=== PATIENT | female | born 1980 | race Two or more races ===

== ENCOUNTER 2016-11-02 14:42 | Emergency (ER) | payer MEDICAID ==
[2016-11-02 15:06] VITALS: TEMP 98.4
--- NOTE | 2016-11-02 15:33 | EDPHY ---
H & P Stated Complaint: Migrane since 10/31 Source: Patient Exam Limitations: No limitations - Personal History Current Tetanus/Diphtheria Vaccine: Yes Current Tetanus Diphtheria and Acellular Pertussis (TDAP): Yes - Medical/Surgical History Hx Asthma: No Hx Chronic Respiratory Disease: No Hx Diabetes: No Hx Cardiac Disease: No Hx Renal Disease: No Hx Cirrhosis: No Hx Alcoholism: No Hx HIV/AIDS: No Hx Splenectomy or Spleen Trauma: No - Social History Smoking Status: Never smoked Time Seen by Provider: 11/02/16 15:30 HPI/ROS: CHIEF COMPLAINT: Migraine headache. HISTORY OF PRESENT ILLNESS: The patient is a 36-year-old female with a history of migraines who presents with a migraine headache since Wednesday (2 days). Usually her migraines go away in 1-2 days especially if she is able to take Imitrex close to onset. Today's migraine, however, has not subsided. She admits associated photophobia and nausea which is similar to her previous migraines. She does report developing neck pain at the beginning of this headache which is somewhat unusual for her. She has been taking Aleve instead of taking her Imitrex because, as mentioned, her headache started with right- sided neck pain. She has had neck pain with her migraines especially over the last year. No recent sickness, double vision, blurred vision, numbness, weakness, paresthesias. No fever, chills, chest pain, shortness of breath, palpitations, vomiting, diarrhea, urinary complaints, lightheadedness. REVIEW OF SYSTEMS: Aside from elements discussed in the HPI, a comprehensive 10-point review of systems was reviewed and is negative. PAST MEDICAL HISTORY: Migraines. 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 VITAL SIGNS Reviewed by me. GENERAL: Well-developed, well-nourished, resting in a dark room. HEENT: Atraumatic. Eyes: PERRL, EOMI, no nystagmus. No icterus. No injection. Mouth: moist mucous membranes. No erythema or lesions. Neck: No meningitis. Some tenderness to palpation over the right lateral neck musculature. No midline tenderness. No adenopathy. Negative Kernig's. Negative Brudzinski's. No meningismus. LUNGS: Clear to auscultation bilaterally, no wheezes, rhonchi or rales. CARDIAC: Regular rate and rhythm, no rubs, murmurs or gallops. ABDOMEN: Soft, nontender, nondistended, bowel sounds normal. BACK: No CVA tenderness. EXTREMITIES: No trauma. No edema. Range of motion is normal throughout. NEURO: Alert and oriented, cranial nerves II through XII are intact. Motor strength 5 over 5 in all major muscle groups. Sensation intact to light touch. Normal gait. SKIN: Warm and dry, no rash. PSYCHIATRIC: Normal mentation, no agitation. Portions of this note were transcribed by a medical dosimetrist. I personally performed a history, physical exam, medical decision making, and confirmed accuracy of information the transcribed note. (Sailaja Castillo) Constitutional: Initial Vital Signs Temperature (C) 36.9 C 11/02/16 15:04 Heart Rate 72 11/02/16 15:04 Respiratory Rate 16 11/02/16 15:04 Blood Pressure 105/60 11/02/16 15:04 O2 Sat (%) 97 11/02/16 15:04 O2 Delivery Mode Room Air O2 (L/minute) 2 Allergies/Adverse Reactions: No Known Allergies Allergy (Unverified 11/02/16 15:03) Home Medications: Medication Instructions Recorded Hydrocodone/APAP 5/325 [[place] 1 tab PO Q6H PRN #10 tab 11/02/16 5/325 (RX)] Medical Decision Making - Diagnostics Imaging: Study: CT of the head was obtained. The results of the study are: Suspect petechial hemorrhage rather than calcification in the subcortical posterior right frontal lobe. No surrounding edema or mass effect. The study was read by the radiologist, Dr. Ziegler. I viewed the images myself on the PACS system. (Jennifer Foss) ED Course/Re-evaluation: An IV was established and labs ordered. 10mg IV Decadron, 25mg IV Benadryl, 10mg IV Reglan, and 30mg IV Toradol administered for migraine. 445: Patient is feeling better. Headache mostly resolved but not completely gone. Dilaudid was given. Patient will undergo CT scan of the head as she has been experiencing more frequent headaches comma headaches associated with more neck discomfort, and has not had imaging studies previously. (Sailaja Castillo) The patient was signed out to me by Dr. Castillo at shift change with head CT pending. Imaging results were phoned to me, she has suspected right sided subcortical hemorrhage. I examined the patient and discussed findings. She has a history of migraines that occur every 3 months. She is prescribed Imitrex. She tells me her headaches have been occurring more frequently than usual and are more severe than her typical migraines. Plan to order brain MRI. MRI of the brain with without contrast was performed. The results were relayed to me by Dr. Clark Yeboah. 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 There is evidence of recent bleeding and also has hemosiderin suggesting more remote bleeding. I have spoke with Dr. and rib escobar of Neurosurgery. He will see the patient in clinic. I reviewed these findings with the patient and given her information about cavernous malformations. She is currently headache free. She has never had seizure activity. I feel that she is safe to return home. (Jennifer Foss) Differential Diagnosis: After history was obtained, and the physical exam performed, a differential for headache was considered including, but not limited to, subarachnoid hemorrhage, migraine headache, tension headache and infectious causes such as meningitis, sinusitis, encephalitis. (Sailaja Castillo) - Data Points Medications Given: Discontinued Medications Dexamethasone (Decadron Injection) 10 mg IVP EDNOW ONE Stop: 11/02/16 15:49 Last Admin: 11/02/16 16:01 Dose: 10 mg Diphenhydramine HCl (Benadryl Injection) 25 mg IVP EDNOW ONE Stop: 11/02/16 15:49 Last Admin: 11/02/16 16:02 Dose: 25 mg Hydromorphone HCl (Dilaudid) 1 mg IVP EDNOW ONE Stop: 11/02/16 16:46 Last Admin: 11/02/16 16:56 Dose: 1 mg Ketorolac Tromethamine (Toradol) 30 mg IVP EDNOW ONE Stop: 11/02/16 15:49 Last Admin: 11/02/16 16:02 Dose: 30 mg Metoclopramide HCl (Reglan Injection) 10 mg IVP EDNOW ONE Stop: 11/02/16 15:49 Last Admin: 11/02/16 16:02 Dose: 10 mg Departure - Departure Disposition: Home, Routine, Self-Care Clinical Impression: Cavernous malformation Migraine Qualifiers: Migraine type: unspecified Status migrainosus presence: without status migrainosus Intractability: not intractable Qualified Code(s): G43.909 - Migraine, unspecified, not intractable, without status migrainosus Condition: Good Instructions: Migraine Headache (ED) Additional Instructions: Call Dr. Alas, neurology, tomorrow to set up a follow up appointment. Okay to take hydrocodone if needed for any residual severe headache pain. Return to the emergency department for any serious worsening of condition. You have what is called a cavernous malformation in your right brain. These are abnormal blood vessels. Usually they do not cause major problems. They are followed by neurosurgeons and I am referring you to the neurosurgery clinic , Dr. Dhaliwal. If you have severe headache, new numbness, new weakness, confusion , or a seizure you should call 911 and return to the emergency department. Cavernous malformations are clusters of abnormal, tiny blood vessels, and larger , stretched-out, thin-walled blood vessels filled with blood in the brain. These blood vessel malformations can also occur in the spinal cord, the covering of the brain (dura), or the nerves of the skull. Cavernous malformations range in size from less than one-quarter inch to 3-4 inches. Cavernous malformations are also referred to as cavernomas, cavernous angiomas, cavernous hemangiomas or intracranial vascular malformations. The term angioma implies a propensity for growth that is associated primarily with the familial form of the illness. Diagnosis Cavernous malformations are part of a group of lesions known as "angiographically occult vascular malformations." This means that they are not visible on an angiogram. Angiograms cannot visualize cavernous malformations because blood flows through these types of lesions slowly. The relatively milder symptoms from the lesion, even when ruptured, are presumed to be related to this state of relatively low blood flow. Magnetic resonance imaging (MRI), with and without contrast and with gradient echo sequences remains the best means of diagnosing cavernous malformations. MRI scans may need to be repeated to analyze a change in the size of a cavernous malformation, recent bleeding, or the appearance of new lesions. Treatment Asymptomatic Lesions In general, lesions that are and incidentally discovered should be followed with MRI scans annually for two years, then every five years thereafter. An MRI should be performed sooner if there is any clinical evidence of hemorrhage or new symptoms appear. Some patients may be prescribed anti-convulsant medications. This is an example of a subtype of AVM that may be monitored radiographically, specifically because the consequences of hemorrhage from these lesions are much less dire than those from classic AVMs or aneurysms. Symptomatic lesions Surgery should be considered for seizure control if: 1. Seizures cannot be controlled through medication management; 2. The cavernous malformation is in a low risk, easily accessible area of the brain; and 3. It has been determined that the lesion is causing the seizures. If seizures are controlled through medication management, there may not be any compelling reason to perform surgery. In general, although seizures may indeed be cured by successful microsurgical removal, the primary goal of surgery is to prevent future bleeding and problems such as seizures that may be associated with it. Seizure control by itself is not justification for performing microsurgery on a cavernous malformation. Surgery may be indicated in patients who have experienced one neurologically symptomatic hemorrhage from a lesion in a low risk, easily accessible area. For lesions in eloquent areas of the brain, surgical removal should be contemplated in the context of surgical risk to nearby brain tissue, balancing this risk against the risk of bleeding to that same tissue in the event of a second hemorrhage. Surgical removal should be considered in patients with progressive neurological deficits, but such neurological deficits can worsen after surgery. Although brain or spine surgery may carry substantial risk, so may hemorrhage into nervous tissue. The risk of surgery must be balanced against the risk of no surgery, on an individualized, [id number] basis. Outcome Most patients can leave the hospital a few days following surgery and resume normal life within a few weeks of surgery. Many patients can be cured without neurological deficit. Many patients with neurological deficits are able to regain their neurological baseline (condition at time of surgery) with therapy, and may even show further improvements. Patients with neurological deficits may require a prolonged period of rehabilitation. The rebleeding rate of cavernous malformations is extremely variable. Some patients with malformations and one bleeding episode never experience a recurrence of their symptoms, while others experience frequent rebleeding. Referrals: IN[facility] COBOS,. [Primary Care Provider] - As per Instructions Yeison Alas MD [Medical Doctor] - As per Instructions Chino Dhaliwal MD [Medical Doctor] - As per Instructions Stand Alone Forms: School Excuse Prescriptions: Hydrocodone/APAP 5/325 [[place] 5/325 (RX)] 1 tab PO Q6H PRN #10 tab PRN Reason: Pain Report Scribed for: Sailaja Castillo Report Scribed by: Dylan Valencia Date of Report: 11/02/16 Time of Report: 15:33
[2016-11-02] MEDS ORDERED: KETOROLAC 30 MG/1 ML SDV IVP ONE (15:48)
[2016-11-02] MEDS ORDERED: DEXAMETHASONE 10 MG/ML VIAL IVP ONE (15:48)
[2016-11-02] MEDS ORDERED: METOCLOPRAMIDE 10 MG/2 ML VIAL IVP ONE (15:48)
[2016-11-02] MEDS ORDERED: HYDROmorphONE/DILAUDID 1 MG/ML SYR IVP ONE (16:45)
[2016-11-02 20:27] VITALS: RESP 18
[2016-11-02] MEDS ORDERED: GADOBUTROL 10 ML VIAL IVP ONE (20:39)
[2016-11-02 22:25] VITALS: BP 117/59; PULSE 72; O2SAT 95
== END 2016-11-02 22:25 | disposition home or self-care (01) ==
DX: G43.909 Migraine, unspecified, not intractable, without status migrainosus (principal); Q28.3 Other malformations of cerebral vessels
CPT/HCPCS: 96374; A9585; J1170; J1200; J1885; J2765